=== PATIENT | female | born 1985 | race Caucasian/White ===

== ENCOUNTER 2022-06-08 00:19 | Emergency (ER) | payer BC, SELFPAY ==
[2022-06-08 00:28] VITALS: BP 149/89; PULSE 68; RESP 18; TEMP 37; O2SAT 98; BMI 34.1
--- NOTE | 2022-06-08 00:48 | CRLHL7_ITS ---
For Patients: As a result of the Century Cures Act, medical imaging exams and procedure reports are released immediately into your electronic medical record. You may view this report before your referring provider. If you have questions, please contact your health care provider. INDICATION: Chest pain TECHNIQUE: Chest 2 views. COMPARISON: None FINDINGS: Cardiovascular and mediastinum: Heart size and vasculature are normal in caliber and appearance. Mediastinum is within normal limits. Lungs and pleural spaces: Lungs are clear. No sign of infiltrate or mass. No sign of pleural effusion. No pneumothorax. Bones and soft tissues: No significant findings. IMPRESSION: No sign of acute disease. Dictated by Mary Guerrero MD @ 06/08/2022 1:39:37 AM (Electronically Signed)
[2022-06-08 00:56] VITALS: BP 128/84; PULSE 66; RESP 18; O2SAT 97
[2022-06-08] MEDS: 0.9 % SODIUM CHLORIDE 1000 ml 1,000 ML IV (01:00)
[2022-06-08] MEDS: ASPIRIN 81 MG TAB.CHEW 324 MG PO (01:00)
[2022-06-08 01:02] VITALS: BP 138/89; PULSE 68; RESP 18; O2SAT 94
[2022-06-08 01:02] LABS: Basophils Percent Auto 0.3 % (0.0-3.0); Eosinophils Percent Auto 3.4 % (0.0-7.0); Hematocrit 38.7 % (33.0-51.0); Hemoglobin* 13.2 gm/dL (12.0-16.0); Immature Granulocytes Pct Auto 0.2 %; Lymphocytes Percent Auto 20.5 % (20-44); Mean Corpuscular HGB Conc 34 gm/dL (32-36); Mean Corpuscular Hemoglobin 30 pg (26-34); Mean Corpuscular Volume 89 fL (80-100); Monocytes Percent Auto 6.6 % (0.0-11.0); Platelet Count* 356 K/uL (140-440); RDW Coefficient of Variation % 12.3 % (11.5-15.5); Red Blood Count 4.37 m/uL (4.00-5.20); White Blood Count* 12.07 K/uL (4.50-11.00)
[2022-06-08] MEDS: PANTOPRAZOLE SODIUM 40 MG INJ IVP (01:05)
[2022-06-08 01:07] LABS: Slide Review Reflex No
[2022-06-08 01:08] LABS: Chloride* 110 mmol/L (96-114); Potassium* 4.7 mmol/L (3.6-5.1); Sodium* 140 mmol/L (135-149)
[2022-06-08 01:11] LABS: Blood Urea Nitrogen* 10 mg/dL (5-24); Calcium* 9.3 mg/dL (8.4-10.6); Carbon Dioxide* 19 mmol/L (20-32); Creatinine* 0.7 mg/dL (0.5-1.5); Est. Creatinine Clearance* 100.94; Estimated Glomerular Filt Rate 116 ml/min; Glucose* 99 mg/dL (60-115)
[2022-06-08 01:12] LABS: INR 0.91 (0.91-1.10); Prothrombin Time 12.8 Seconds
[2022-06-08 01:19] LABS: D Dimer Quantitative* < 0.27 ug/ml (0.00-0.50)
[2022-06-08 01:22] LABS: NT Pro B Type NatriureticPept* 732 pg/mL
[2022-06-08 01:23] LABS: Troponin I* 0.02 ng/mL (0.01-0.04)
--- NOTE | 2022-06-08 01:26 | ED_ITS ---
HPI - Chest Pain General Date Seen: 06/08/22 Chief Complaint: Chest Pain Stated Complaint: chestpain, nausea, prior heart attack Time Seen by Provider: 06/08/22 00:28 Source: patient Mode of arrival: ambulatory Limitations: no limitations History of Present Illness HPI narrative: patient is a 37-year-old female who describes some chest pressure, for the last 3-4 hours. She describes in her epigastrium, spreading across her abdomen, and then radiating into her chest, she describes this as burning. It comes and goes, but has been there now for 3-4 hours. Does not radiate to her neck back or shoulders, she denies no shortness of breath with this, no nausea, no vomiting. She did not take anything for this. But is worried as she has a past history of coronary disease with 2 previous stents of her LAD. She did have a normal stress test in March of 2022, sees cardiology, stents were placed in 2020 in [facility]. Did not take any nitro, did not take any aspirin, has not missed any of her doses of aspirin. complaint: chest pain and chest discomfort Pertinent past history: coronary artery disease and [employer]SULT[employer] Onset (ago): hour(s) Timing of current episode: constant Prior episodes: Yes Onset: during rest Pain location: substernal and epigastric Pain radiation: none Severity: moderate Quality: heaviness Relieving factors: nothing Exacerbating factors: nothing Context: recent illness Treatment prior to arrival: none Risk Factors Coronary artery disease risk factors: smoking history Thoracic aortic dissection risk factors: none Related Data On Oral Contraceptives: No Home Medications Medication Instructions Recorded Confirmed aspirin 81 mg chewable tablet 81 mg PO DAILY 06/08/22 06/08/22 bupropion HCl 150 mg tablet,12 hr 150 mg PO BID 06/08/22 06/08/22 sustained-release (Wellbutrin SR) metoprolol succinate 50 mg 50 mg PO DAILY 06/08/22 06/08/22 tablet,extended release 24 hr (Toprol XL) Allergies Allergy/AdvReac Type Severity Reaction Status Date / Time No Known Drug Allergies Allergy Verified 06/08/22 00:30 Review of Systems Status of ROS Reports: 10 or more systems reviewed and unremarkable except as noted in History and below [facility] Medical History (Updated 06/08/22 @ 02:29 by Krystian Santillan MD) ADHD Anxiety Asthma STEMI (ST elevation myocardial infarction) Surgical History (Updated 06/08/22 @ 01:13 by Rodrigo Tellez RN) History of cardiac catheterization History of section History of cholecystectomy History of tonsillectomy Social History Smoking Status: Current every day smoker Do you use any of these nicotine containing products: None Second hand tobacco smoke exposure: Yes How often do you have a drink containing alcohol: never How often do you have six or more drinks on one occasion: Never AUDIT-C Alcohol total score: 0 Non-prescribed substance use: denies use Exam Narrative Exam Narrative: Patient is speaking normally, no problem with slurring words, oriented x3. Head eyes ears nose and throat exam show equal pupils, no scleral icterus, extraocular muscles are normal, no facial droop, speech is normal, trachea normal and midline. Thyroid normal midline palpable not enlarged. Chest shows symmetrical rise bilaterally, normal auscultation with no wheezes, no increased work of breathing, no overt bruising or lesions seen, no tenderness is noted on auscultation. Heart sounds normal with no S3-S4 no murmurs clicks or gallops. Abdomen shows no obvious masses or hepatosplenomegaly, no organomegaly, bowel sounds are normal in all quadrants. No tenderness is noted also in all quadrants. Upper and lower extremities show normal power, normal range of motion, pulses are normal, sensations normal, fine motor movements are normal, pelvis is stable to rocking. Cervical spine shows normal range of motion, and palpably not tender. Thoracic spine shows normal range of motion, and palpably not tender, lumbar spine shows no tenderness to palpation percussion and is otherwise normal range of motion. Skin shows no rashes, petechiae or eccymosis. Const Vital Signs, click to edit/add: Vital Signs - 24 hr 06/08/22 00:28 06/08/22 00:56 06/08/22 01:02 Temperature 98.6 F Pulse Rate 66 68 Pulse Rate [Right Pulse Oximeter] 68 Respiratory Rate 18 18 18 Blood Pressure 128/84 138/89 Blood Pressure [Right Upper Arm] 149/89 H Pulse Oximetry 98 97 94 Oxygen Delivery Method Room Air 06/08/22 01:32 06/08/22 02:02 06/08/22 02:33 Temperature 98.6 F Pulse Rate 59 L 65 Pulse Rate [Right Pulse Oximeter] 68 Respiratory Rate 18 18 18 Blood Pressure 123/79 118/77 Blood Pressure [Right Upper Arm] 149/89 H Pulse Oximetry 97 99 Oxygen Delivery Method Documenting provider has reviewed patient's vital signs: yes Common normals: no apparent distress Course Course Hospital Course: Discussed with the patient, that I would like to keep her for a 3rd set of enzymes, given her history of coronary artery disease, she felt slightly improved in her pain became more clearly lower abdominal, while she was here. Re-evaluation of her abdomen shows no peritoneal signs, no significant tenderness, and no organomegaly. She would not stay, she does however understand fact that if she leaves, cannot further monitor her here. she does understand that by leaving she is going against my medical advice. She does agree come back and be seen, If she has worsening or chest pain, shortness of breath, or any other atypical symptoms, she agreed to follow up with primary care, and the roman catholic that this is more GI related, she will take some Prilosec Vital Signs Vital signs: Initial Vital Signs Temperature 98.6 F 06/08/22 00:28 Temperature Source Temporal Artery Scan 06/08/22 00:28 Pulse Rate 68 06/08/22 00:28 Pulse Rhythm 06/08/22 00:28 Pulse Strength 3+ Normal 06/08/22 00:28 Respiratory Rate 18 06/08/22 00:28 Blood Pressure 149/89 H 06/08/22 00:28 Blood Pressure Mean 109 06/08/22 00:28 Blood Pressure Position Sitting 06/08/22 00:28 Pulse Oximetry 98 06/08/22 00:28 Oxygen Delivery Method 06/08/22 00:28 Vital Signs Temperature 98.6 F 06/08/22 00:28 Pulse Rate 68 06/08/22 00:28 Respiratory Rate 18 06/08/22 00:28 Blood Pressure 149/89 H 06/08/22 00:28 Pulse Oximetry 98 06/08/22 00:28 Oxygen Delivery Method 06/08/22 00:28 Temperature 98.6 F 06/08/22 02:33 Pulse Rate 68 06/08/22 02:33 Respiratory Rate 18 06/08/22 02:33 Blood Pressure 149/89 H 06/08/22 02:33 Pulse Oximetry 99 06/08/22 02:02 Oxygen Delivery Method 06/08/22 00:28 MDM - Chest Pain MDM Narrative Medical decision making narrative: During the evaluation of this patient I considered multiple differential diagnosis is. The life-threatening differential diagnosis include coronary disease/FL, pulmonary embolism, pneumothorax, pneumonia, and aortic dissection. Other differential diagnosis included but were not limited to pericarditis, myocarditis, chest wall pain, GERD, esophageal rupture, rib fracture contusion, pleurisy, as well as other etiologies. Medical Records Data Attestation: I reviewed the patient's medical records. Medical records narrative: Was able to pull medical records off the [employer] system, I am able to say she had on 03/01/2022 a normal stress echo with contrast, with no wall motion abnormalities. Also cardiology visit from November of 2021. Lab Data Attestation: I reviewed the patient's lab results. Lab results narrative: Two sets of troponins are negative, along with a D-dimer. Labs: Lab Results 06/08/22 06/08/22 06/08/22 Range/Units 00:40 00:40 00:40 WBC 12.07 H (4.50-11.00) K/uL RBC 4.37 (4.00-5.20) m/uL Hgb 13.2 (12.0-16.0) gm/dL Hct 38.7 (33.0-51.0) % MCV 89 (80-100) fL MCH 30 (26-34) pg MCHC 34 (32-36) gm/dL RDW Coeff of Paco 12.3 (11.5-15.5) % Plt Count 356 (140-440) K/uL Neut % (Auto) 69.0 (42.0-72.0) % Lymph % (Auto) 20.5 (20-44) % Allen % (Auto) 6.6 (0.0-11.0) % Eos % (Auto) 3.4 (0.0-7.0) % Baso % (Auto) 0.3 (0.0-3.0) % Neut # (Auto) 8.30 H (1.7-7.0) K/uL Lymph # (Auto) 2.50 (0.90-2.90) K/uL Allen # (Auto) 0.80 (0.00-0.90) K/UL Eos # (Auto) 0.40 (0.00-0.50) K/uL Baso # (Auto) 0.00 (0.00-0.30) K/uL INR 0.91 (0.91-1.10) D-Dimer Quant (PE/DVT) < 0.27 (0.00-0.50) ug/ml Sodium 140 (135-149) mmol/L Potassium 4.7 (3.6-5.1) mmol/L Chloride 110 (96-114) mmol/L Carbon Dioxide 19 L (20-32) mmol/L BUN 10 (5-24) mg/dL Creatinine 0.7 (0.5-1.5) mg/dL Estimated Creat Clear 100.94 Estimated GFR 116 ml/min Glucose 99 (60-115) mg/dL Calcium 9.3 (8.4-10.6) mg/dL Troponin I 0.02 (0.01-0.04) ng/mL NT-Pro-B Natriuret Pep 732 pg/mL SARS-CoV-2 (PCR) (Negative) Influenza Type A (PCR) (Negative) Influenza Type B (PCR) (Negative) RSV (PCR) (Negative) POC Troponin I (0.01-0.04) ng/ml 06/08/22 06/08/22 06/08/22 Range/Units 00:40 00:50 02:15 WBC (4.50-11.00) K/uL RBC (4.00-5.20) m/uL Hgb (12.0-16.0) gm/dL Hct (33.0-51.0) % MCV (80-100) fL MCH (26-34) pg MCHC (32-36) gm/dL RDW Coeff of Paco (11.5-15.5) % Plt Count (140-440) K/uL Neut % (Auto) (42.0-72.0) % Lymph % (Auto) (20-44) % Allen % (Auto) (0.0-11.0) % Eos % (Auto) (0.0-7.0) % Baso % (Auto) (0.0-3.0) % Neut # (Auto) (1.7-7.0) K/uL Lymph # (Auto) (0.90-2.90) K/uL Allen # (Auto) (0.00-0.90) K/UL Eos # (Auto) (0.00-0.50) K/uL Baso # (Auto) (0.00-0.30) K/uL INR (0.91-1.10) D-Dimer Quant (PE/DVT) (0.00-0.50) ug/ml Sodium (135-149) mmol/L Potassium (3.6-5.1) mmol/L Chloride (96-114) mmol/L Carbon Dioxide (20-32) mmol/L BUN (5-24) mg/dL Creatinine (0.5-1.5) mg/dL Estimated Creat Clear Estimated GFR ml/min Glucose (60-115) mg/dL Calcium (8.4-10.6) mg/dL Troponin I (0.01-0.04) ng/mL NT-Pro-B Natriuret Pep pg/mL SARS-CoV-2 (PCR) Negative SARS-CoV-2 (Negative) Influenza Type A (PCR) Negative PCR FLU A (Negative) Influenza Type B (PCR) Negative PCR FLU B (Negative) RSV (PCR) Negative PCR RSV (Negative) POC Troponin I 0.00 L 0.00 L (0.01-0.04) ng/ml Imaging Data Chest x-ray: Attestation: I have reviewed the pertinent imaging results. My impression: negative chest x-ray for acute changes Radiologist's impression: Negative chest x-ray for acute rodriguez ECG Data Attestation: I personally reviewed and interpreted this ECG as follows: ECG interpretation date: 06/08/22 Prior ECG tracings: not available for review Interpretation: 2 EKGs are done 90 minutes apart which show normal sinus rhythm, poor R-wave progression close the precordial leads, but no acute ST wave changes. Discharge Plan Discharge Clinical Impression: Atypical chest pain Patient Disposition: Home, Self-Care Condition: Improved Instructions: Chest Pain (DC) Additional Instructions: All your tests are negative, including her heart test x2 in her EKGs. Would like to keep you for 1 more set of heart testing EKGs, but I understand and respect your decision. You have recurrent chest pain worsening of your symptoms, please return to the emergency room, his symptoms now seem more of the abdomen however, I think watching this and following up with her regular physician or returning here if worsening fevers chills abdominal pain for re- evaluation would be appropriate. Prilosec 20 mg a day would be a good treatment continue on your other medications, please follow-up with her primary care physician within the next 3 days for recheck, Prescriptions: No Action aspirin 81 mg tablet,chewable 81 mg PO DAILY bupropion HCl [Wellbutrin SR] 150 mg tablet sustained-release 12 hr 150 mg PO BID metoprolol succinate [Toprol XL] 50 mg tablet extended release 24 hr 50 mg PO DAILY Follow Up/Referrals: Astrid Quintero DO [Primary Care Provider] - Stand Alone Forms: [employer] Info Instructions
[2022-06-08 01:32] VITALS: BP 123/79; PULSE 59; RESP 18; O2SAT 97
[2022-06-08 01:40] LABS: PCR FLU A Negative PCR FLU A (Negative); PCR FLU B Negative PCR FLU B (Negative); PCR RSV Negative PCR RSV (Negative)
[2022-06-08] MEDS: MAG HYDROX/ALUMINUM HYD/SIMETH 30 ML ORAL.SUSP 15 ML PO (01:43)
[2022-06-08 01:57] LABS: SARS PCR* Negative SARS-CoV-2 (Negative)
[2022-06-08 02:02] VITALS: BP 118/77; PULSE 65; RESP 18; O2SAT 99
[2022-06-08 02:33] VITALS: BP 149/89; PULSE 68; RESP 18; TEMP 37
== END 2022-06-08 02:34 | disposition home or self-care (01) ==
PROVIDERS: Emergency Provider Family Medicine; PCP Family Medicine
DX: R07.89 Other chest pain (principal)
CPT/HCPCS: 36415; 71046; 80048; 83880; 84484; 85025; 85379; 85610; 87502; 87634; 87635; 93005; 96374; 99285; A9270; C9113; J7030